=== PATIENT | female | born 1930 | race Caucasian/White ===

== ENCOUNTER 2019-04-15 09:54 | Inpatient (IN) | payer MEDICARE ==
[~2019-04-15] VITALS: Ht 172.7 cm; Wt 93.6 kg
[2019-04-15] MEDS ORDERED: IV NORMAL SALINE 1,000ML 1,000 ML IV SCH (10:20)
[2019-04-15] MEDS ORDERED: ASPIRIN 81 MG TAB.CHEW PO ONE (10:30)
--- NOTE | 2019-04-15 10:32 | PHYS DOC ---
Past History Past Medical History: CAD, Diabetes, High Cholesterol, Hypertension Past Surgical History: Other Additional Past Surgical Histo: cardiac stent Smoking: Non-smoker Alcohol Use: None Drug Use: None Adult General Chief Complaint Chief Complaint: RAPID HEART RATE HPI HPI Patient is a 88-year-old female presents with a fast heart rate and weakness that started this morning. Patient takes her blood pressure twice a day, noted that her heart rate was in the 100s this morning. It is normally in the 70s. She notes that she is feeling weaker than usual. Worse with exertion. No recent changes in medicine. She does not have any previous history of cardiac dysrhyt hmia. She denies any chest pain. Weakness is worse with exertion. No nausea or vomiting. No syncopal episode. No recent travel. No fever or chills. She has a history of diabetes, hypertension, high cholesterol, and previous cardiac stent. She had a syncopal event as the indication for her need for the cardiac status, she never had chest pain.[] Review of Systems Review of Systems Constitutional: Denies fever or chills [] Eyes: Denies change in visual acuity, redness, or eye pain [] HENT: Denies nasal congestion or sore throat [] Respiratory: Denies cough or shortness of breath [] Cardiovascular: No chest pain or palpitations[] GI: Denies abdominal pain, nausea, vomiting, bloody stools or diarrhea [] : Denies dysuria or hematuria [] Musculoskeletal: Denies back pain or joint pain [] Integument: Denies rash or skin lesions [] Neurologic: Denies headache, focal weakness or sensory changes [] Endocrine: Denies polyuria or polydipsia [] All other systems were reviewed and found to be within normal limits, except as documented in this note. Physical Exam Physical Exam Constitutional: Well developed, well nourished, no acute distress, non-toxic appearance. [] HENT: Normocephalic, atraumatic, bilateral external ears normal, oropharynx moist, no oral exudates, nose normal. [] Eyes: PERRLA, EOMI, conjunctiva normal, no discharge. [] Neck: Normal range of motion, no tenderness, supple, no stridor. [] Cardiovascular:Heart rate is tachycardic in the 100s to 120s, with an irregularly irregular rhythm, no murmur [] Lungs & Thorax: Bilateral breath sounds clear to auscultation [] Abdomen: Bowel sounds normal, soft, no tenderness, no masses, no pulsatile masses. [] Skin: Warm, dry, no erythema, no rash. [] Back: No tenderness, no CVA tenderness. [] Extremities: No tenderness, no cyanosis, no clubbing, ROM intact, 1-2+ pretibial edema bilaterally symmetric in lower extremities. [] Neurologic: Alert and oriented X 3, normal motor function, normal sensory function, no focal deficits noted. [] Psychologic: Affect normal, judgement normal, mood normal. [] EKG EKG EKG shows an irregularly irregular rhythm at 104 bpm, left axis, no ST elevation. QTC of 493 ms. No old EKG available for comparison. This was interpreted by me at 1010[] Radiology/Procedures Radiology/Procedures PROCEDURE: PORTABLE CHEST 1V AP chest x-ray HISTORY: New onset atrial fibrillation and weakness. FINDINGS: Aortic arch calcified plaque. Moderate cardiomegaly. No pneumothorax. Right lung clear. There is a small left pleural effusion along the lateral diaphragm and slight elevation of the left diaphragm. Heterogeneous linear densities at the left midlung general area of the upper lingula. Bones are unremarkable. IMPRESSION: Small left pleural effusion and mild elevation of the left diaphragm. Lingula atelectasis/infiltrate is present. Cardiomegaly.[] Course & Med Decision Making Course & Med Decision Making Pertinent Labs and Imaging studies reviewed. (See chart for details) ED course: Patient arrived, was placed in bed, and tolerated exam well. IV access was established, she was placed on the monitor. Her initial set of labs had issues with hemolysis and clotting. At the time of this dictation a second set is pending. However, enough had returned to be able to discuss findings and plan with patient and family. They voiced understanding. Consultation was made with the hospitalist service for admission. They graciously accepted. Patient was admitted in improved condition. Decision-making: Patient with new onset atrial fibrillation that is rate controlled, most likely is result of her carvedilol. Her initial cardiac enzymes are detectable but negative. Patient is having no chest pain, however she had no chest discomfort with her need for cardiac stenting. Holding off on anticoagulating as well as diuresing pending additional lab studies that have not returned at the time of this dictation.[] Dragon Disclaimer Dragon Disclaimer This electronic medical record was generated, in whole or in part, using a voice recognition dictation system. Departure Departure: Impression: Primary Impression: New onset atrial fibrillation Additional Impressions: Weakness Congestive heart failure Disposition: ADMITTED INPATIENT Admitting Physician: Blade Galarza Condition: IMPROVED Referrals: HEVER BOWER MD (PCP) Problem Qualifiers Additional Impressions: Congestive heart failure Heart failure type: unspecified Heart failure chronicity: unspecified Qualified Codes: I50.9 - Heart failure, unspecified JOSS FLORES DO Apr 15, 2019 10:32
--- NOTE | 2019-04-15 10:57 | RAD ---
AP chest x-ray HISTORY: New onset atrial fibrillation and weakness. FINDINGS: Aortic arch calcified plaque. Moderate cardiomegaly. No pneumothorax. Right lung clear. There is a small left pleural effusion along the lateral diaphragm and slight elevation of the left diaphragm. Heterogeneous linear densities at the left midlung general area of the upper lingula. Bones are unremarkable. IMPRESSION: Small left pleural effusion and mild elevation of the left diaphragm. Lingula atelectasis/infiltrate is present. Cardiomegaly. Electronically signed by: Michael Bartlett MD (04/15/2019 10:54 AM) [facility]
[2019-04-15 10:58] LABS: BASO % 1 % (0-3); EOS % 1 % (0-3); HEMATOCRIT 39.8 % (36.0-47.0); HEMOGLOBIN 12.5 g/dL (12.0-15.5); LYMPH # 1.7 x10^3/uL (1.0-4.8); LYMPH % 45 % (24-48); MEAN CORPUSCULAR HEMOGLOBIN 27 pg (25-35); MEAN CORPUSCULAR HGB CONC 31 g/dL (31-37); MEAN CORPUSCULAR VOLUME 87 fL (79-100); MONO # 0.3 x10^3/uL (0.0-1.1); MONO % 9 % (0-9); NEUT # 1.6 x10^3uL (1.8-7.7); NEUT % 44 % (31-73); PLATELET COUNT 191 x10^3/uL (140-400); RED BLOOD COUNT 4.55 x10^6/uL (3.50-5.40); RED CELL DISTRIBUTION WIDTH 16.3 % (11.5-14.5); WHITE BLOOD COUNT 3.8 x10^3/uL (4.0-11.0)
[2019-04-15 11:31] LABS: ALBUMIN 3.4 g/dL (3.4-5.0); ALBUMIN/GLOBULIN RATIO 1.1 (1.0-1.7); CALCIUM 8.4 mg/dL (8.5-10.1); CREATININE 1.1 mg/dL (0.6-1.0); GFR 46.9; MAGNESIUM 2.2 mg/dL (1.8-2.4); TOTAL BILIRUBIN 0.9 mg/dL (0.2-1.0); TOTAL PROTEIN 6.5 g/dL (6.4-8.2)
[2019-04-15] MEDS ORDERED: NITROGLYCERIN SUBLINGUAL 0.4 MG BOTTLE OF 25. SL PRN (11:45)
[2019-04-15] MEDS ORDERED: ONDANSETRON PF 4 MG/2 ML VIAL. IV PRN (11:45)
[2019-04-15] MEDS ORDERED: ACETAMINOPHEN 325 MG TABLET PO PRN (11:45)
[2019-04-15 13:23] VITALS: BP 150/95
[2019-04-15 13:31] VITALS: BP 150/95
[2019-04-15] MEDS ORDERED: ASPI-630 PO (14:28)
[2019-04-15] MEDS ORDERED: INSU100V13 SQ (14:28)
[2019-04-15] MEDS ORDERED: HYDR-2869 PO (14:28)
[2019-04-15] MEDS ORDERED: CARV25TA2 PO (14:28)
[2019-04-15] MEDS ORDERED: FURO-68 PO (14:28)
[2019-04-15] MEDS ORDERED: PRAV40TA2 PO (14:28)
[2019-04-15 16:13] VITALS: BP 159/91
--- NOTE | 2019-04-15 16:41 | HP ---
ADMIT DATE: 04/15/2019 HISTORY OF PRESENT ILLNESS: The patient is an 88-year-old female patient who came to the Emergency Room with a complaint of fast heart rate and weakness that started this morning. The patient takes her pressure twice a day and noted her heart rate was in the 100s, this morning, it is normal in the 70s. She notes that she is feeling weaker than usual, worse with exertion. No recent change in her medication. She does not have any previous history of cardiac dysrhythmia; although, subsequently said that she was told that her heart rate is regular and she was on Coumadin; however, she has a history of DVT also. Specifically, she denied any chest pain, denied any shortness of breath, orthopnea, paroxysmal nocturnal dyspnea, however, she was unable to be specific other than being weak. PAST MEDICAL HISTORY: Significant for hypertension, hyperlipidemia, type 2 diabetes mellitus, coronary artery disease status post [place], status post PCI with stent deployment x 3. She has a remote history of deep vein thrombosis. She is known to have senile macular degeneration. PAST SURGICAL HISTORY: Significant for appendectomy, cholecystectomy, PCI with stent deployment x 3 and history of colonoscopy. ALLERGIES: SHE IS ALLERGIC TO SULFA, IODINE, AND LATEX. MEDICATIONS: She is currently on pravastatin sodium 40 mg at bedtime, hydralazine 50 mg 3 times a day, carvedilol 25 mg twice a day with meals, aspirin 81 mg once a day, furosemide 40 mg once a day and detemir insulin 60 units at bedtime. FAMILY HISTORY: She has 1 living brother who is older and has cancer in remission. She has 4 sisters and 3 brothers, all . Her father of myocardial infarction. Mother of a tumor that she could not specify more. Her younger sister of pancreatic cancer. SOCIAL HISTORY: She is , has moved about 3 years ago with her to be with her daughter. She apparently has one daughter and three sons. Her older son at age of 46. She has never smoked, does not drink alcohol or use any recreational drugs. 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 REVIEW OF SYSTEMS: The patient denied any blurring of vision, cataract, glaucoma. However, she is known to have senile macular degeneration. Denied any earache, tinnitus or sensorineural deafness. Denied any nosebleeds, stuffy nose or postnasal drip. Denied any sore throat, sore tongue, toothache, hoarseness of voice or difficulty swallowing. Denied any nausea, vomiting, diarrhea or constipation. Denied any hematemesis, melena or hematochezia. Denied any dysuria, frequency or hematuria. Denied any chest pain, shortness of breath, orthopnea, paroxysmal nocturnal dyspnea. Denied any cough, phlegm or hemoptysis. Denied any chills, rigors or fever. She only has complaint of weakness, worse on exertion. PHYSICAL EXAMINATION: GENERAL: On arrival to the Emergency Room, she was somewhat pale, but no jaundice, cyanosis or lymphadenopathy. No thyromegaly. No jugular venous distention. Mild bilateral lower limb edema. VITAL SIGNS: Her heart rate was 109, blood pressure was 165/101, temperature was 97.8, respiratory rate was 22 and oxygen saturation was 98%. HEAD, EYES, EARS, NOSE AND THROAT: Showed normocephalic, atraumatic. NECK: Supple. HEART: Showed normal first and second heart sounds. No gallop or murmur. CHEST: Clear to auscultation. No crepitation or rhonchi. ABDOMEN: Distended, soft, nontender. No guarding or rigidity. No organomegaly. All hernial orifice intact. Bowel sounds normal. NEUROLOGIC: She was visually impaired. However, all other cranial nerves are intact. EXTREMITIES: She moves extremities without difficulty. She apparently ambulates without assistance or assistive devices. LABORATORY DATA: On arrival to the Emergency Room, she had lab work done, which showed a white cell count of 3800, hemoglobin 12.5, hematocrit 39.8, MCV 87 and platelet count 191,000. Her chemistry showed a serum sodium 143, potassium 4, chloride 106, bicarbonate 30, anion gap of 7, BUN 22, creatinine 1.1, estimated GFR was 46 mL per minute, her glucose 176, calcium was 8.4, magnesium 2.2. Total bilirubin, AST, ALT, alkaline phosphatase were normal. Total protein was 6.5, albumin was 3.4. Her beta natriuretic peptide was 1530. First cardiac enzymes showed troponin to be 0.032. Her prothrombin time, INR and APTT were normal. Her EKG showed that she was in atrial fibrillation with a heart rate of 104 beats per minute with corrected Q interval of 493 milliseconds and no evidence of ST segment elevation. Her chest x-ray showed that she has small left side pleural effusion, mild elevation of the left hemidiaphragm lingula, has atelectasis/infiltrate, and also heart size enlarged. ASSESSMENT AND PLAN: In summary, this is an 88-year-old female patient who was admitted with generalized weakness, was found to have new onset atrial fibrillation and cardiomegaly and questionable congestive heart failure. Her troponin was slightly elevated at 0.032. We will do 2 more sets of cardiac enzyme. We will check her fasting lipid profile tomorrow morning and also thyroid function test and we have consulted the Cardiology to evaluate her. Meanwhile, we will continue with all her current medications. ZARI TAMAYO MD DR: SPEEDY/vadim JOB#: [id number] / [id number]
[2019-04-15] MEDS: CARVEDILOL 12.5 MG TABLET PO SCH (17:25)
[2019-04-15] MEDS: INSULIN GLARGINE SYRINGE. SQ SCH (20:21)
[2019-04-15] MEDS: ATORVASTATIN CALCIUM 10 MG TABLET. PO SCH (20:21)
[2019-04-15 20:33] VITALS: BP 129/82
[2019-04-15] MEDS ORDERED: INSULIN DETEMIR 16 UNIT SQ SCH (21:00)
[2019-04-15 23:12] VITALS: BP 108/73
[2019-04-16 06:04] VITALS: BP 131/62
[2019-04-16 07:33] LABS: BASO % 1 % (0-3); EOS # 0.1 x10^3/uL (0.0-0.7); EOS % 2 % (0-3); HEMATOCRIT 39.8 % (36.0-47.0); HEMOGLOBIN 12.5 g/dL (12.0-15.5); LYMPH # 1.9 x10^3/uL (1.0-4.8); LYMPH % 52 % (24-48); MEAN CORPUSCULAR HEMOGLOBIN 27 pg (25-35); MEAN CORPUSCULAR HGB CONC 31 g/dL (31-37); MEAN CORPUSCULAR VOLUME 88 fL (79-100); MONO # 0.3 x10^3/uL (0.0-1.1); MONO % 9 % (0-9); NEUT # 1.3 x10^3uL (1.8-7.7); NEUT % 36 % (31-73); PLATELET COUNT 181 x10^3/uL (140-400); RED BLOOD COUNT 4.55 x10^6/uL (3.50-5.40); RED CELL DISTRIBUTION WIDTH 16.2 % (11.5-14.5); WHITE BLOOD COUNT 3.7 x10^3/uL (4.0-11.0)
[2019-04-16 07:45] LABS: ALBUMIN/GLOBULIN RATIO 0.8 (1.0-1.7); CALCIUM 8.5 mg/dL (8.5-10.1); CREATININE 0.9 mg/dL (0.6-1.0); POTASSIUM 4.3 mmol/L (3.5-5.1); TOTAL BILIRUBIN 0.9 mg/dL (0.2-1.0); TOTAL PROTEIN 6.6 g/dL (6.4-8.2)
[2019-04-16] MEDS ORDERED: FLU VAX QS 2019-20 (36MOS+)/PF 0.5 ML SYRINGE. VAX IM ONE (09:00)
[2019-04-16] MEDS: CARVEDILOL 12.5 MG TABLET PO SCH ×2 (09:37→17:49)
[2019-04-16] MEDS: FUROSEMIDE 40 MG TABLET PO SCH (09:37)
[2019-04-16] MEDS: ASPIRIN 81 MG TAB.CHEW PO SCH (09:38)
[2019-04-16 11:13] VITALS: BP 120/73
--- NOTE | 2019-04-16 15:06 | CONS ---
DATE OF CONSULTATION: 04/16/2019 REASON FOR CONSULTATION: New onset atrial fibrillation. HISTORY OF PRESENT ILLNESS: The patient is a very pleasant 89-year-old woman with a past medical history of coronary artery disease, who presents to the hospital due to an irregular pulse. She was advised by her online banking specialist, Dr. Sesay at [facility] to check her blood pressure routinely and while she was doing that on Wednesday night and Wednesday morning prior to admission, she noticed that her pulse was higher than usual. This prompted arrival to the ER, where she was noted to be in atrial fibrillation with mostly controlled ventricular response and she was admitted for further evaluation and treatment. In speaking with the patient, she currently denies any chest pain, dyspnea, orthopnea or PND. She does endorse weakness over the course of last one month or so. She has not had any syncope. PAST MEDICAL HISTORY: 1. Remote coronary artery disease, status post PCI and the patient thinks she may have had 3 stents. 2. Hypertension. 3. Diabetes. 4. Dyslipidemia. 5. Prior history of remote DVT and on Coumadin therapy. SOCIAL HISTORY: The patient specifically denies any prior history of stroke. ALLERGIES: SULFA, IODINE, AND LATEX. CURRENT CARDIOVASCULAR MEDICATIONS: 1. Lasix 40 mg daily. 2. Aspirin 81 mg daily. 3. Atorvastatin 10 mg daily. 4. Carvedilol 25 mg p.o. b.i.d. 5. Hydralazine 50 mg p.o. t.i.d. REVIEW OF SYSTEMS: Negative unless otherwise mentioned above in HPI. PHYSICAL EXAMINATION: VITAL SIGNS: Afebrile, 102, 20, 120/73, 96% on room air. GENERAL: She is alert and oriented. She has very poor vision. HEAD AND NECK: Unremarkable. CARDIAC: Irregularly irregular without any obvious murmurs, rubs or gallops. LUNGS: Clear to auscultation anteriorly. ABDOMEN: Soft, nontender, nondistended. EXTREMITIES: 1+ radial and dorsalis pedis pulses. NEUROLOGIC: No focal deficits. MUSCULOSKELETAL: No obvious trauma. SKIN: No significant rashes. DIAGNOSTIC STUDIES: Hemoglobin and platelets are within normal limits. Creatinine is within normal limits. Cardiac enzymes are also negative x 3. LDL is within normal limits. Chest x-ray reveals a small left pleural effusion without any significant pathology. Telemetry reveals atrial fibrillation with a controlled ventricular response. EKG is not currently available for review. IMPRESSION: New onset atrial fibrillation in a setting of multiple cardiovascular risk factors and comorbidities as noted above. RECOMMENDATIONS: 1. We will most likely initiate the patient on anticoagulation therapy and continue her rate control with carvedilol. 2. Obtain records from [facility] and we will also plan for an echocardiogram if necessary based on the most recent echo she has had. We will discuss with the patient's family regarding continued conservative management with rate control and anticoagulation versus aggressive therapy with cardioversion. Thank you for this consultation. HAKEEM ALEXIS MD DR: ZEUS/vadim JOB#: [id number] / [id number]
[2019-04-16 15:10] VITALS: BP 123/81
[2019-04-16 19:30] VITALS: BP 126/83
[2019-04-16] MEDS: ATORVASTATIN CALCIUM 10 MG TABLET. PO SCH (20:51)
[2019-04-16] MEDS: APIXABAN 5 MG TABLET. PO SCH (20:51)
[2019-04-16] MEDS: INSULIN GLARGINE SYRINGE. SQ SCH (21:11)
--- NOTE | 2019-04-17 03:29 | PN ---
DATE: SUBJECTIVE: The patient is resting, slightly propped up in bed, no apparent distress. On questioning her, denied any complaint, in particular denied any chest pain, shortness of breath, dizziness, lightheadedness; however, she continued to be in atrial fibrillation with rapid ventricular response and was seen by the sec accountant and who recommended starting her on Eliquis. Her medical records will be obtained from [facility] and a discussion will be held tomorrow with her family regarding whether medical treatment or aggressive treatment with cardioversion will be pursued. PHYSICAL EXAMINATION: GENERAL: When I saw her this afternoon, she looked well and was clearly in no apparent respiratory distress, pale, but no jaundice, cyanosis or thyromegaly. No jugular venous distension. No limb edema. VITAL SIGNS: Her heart rate was 102, blood pressure was 120/73, temperature was 98.1, respiratory rate 20, and oxygen saturation was 96%. HEAD, EYES, EARS, NOSE AND THROAT: Showed normocephalic, atraumatic. NECK: Supple. HEART: Showed normal first and second heart sounds. No gallop or murmur. CHEST: Clear to auscultation. No crepitation or rhonchi. ABDOMEN: Distended, soft, nontender. NEUROLOGIC: She was awake, alert, responding appropriately. All cranial nerves intact. She moves extremities without difficulty. Her intake over the last 24 hours was 670, no output was recorded. LABORATORY DATA: Her lab work this morning showed a serum sodium 143, potassium 4.3, chloride 108, bicarbonate 26, anion gap of 9, BUN 18, creatinine 0.9, estimated GFR was 59 mL per minute. Her glucose 118, calcium was 8.5. Total bilirubin, AST, ALT, alkaline phosphatase were normal. Total protein was 6.6, albumin was 3. Serum triglycerides were 88, total cholesterol 125, LDL was 66, VLDL was 17, HDL was 42 and the ratio was 2. Her TSH was normal at 2.195. ASSESSMENT: This is an _[id number] female patient who was admitted with new-onset of atrial fibrillation. OTHER MEDICAL PROBLEMS: Include: A. Hypertension. B. Hyperlipidemia. C. Type 2 diabetes. D. Coronary artery disease, status post [place], status post PCI with stent deployment x 3. She has remote history of deep vein thrombosis. She has also a senile macular degeneration. I did start her on Eliquis and we will continue obviously with rate control with Coreg and tomorrow the Cardiology team will discuss with the family regarding the options available to control the heart rate with medically and/or with cardioversion. ZARI TAMAYO MD DR: SPEEDY/vadim JOB#: [id number] / [id number]
[2019-04-17 05:39] VITALS: BP 121/77
[2019-04-17] MEDS: ASPIRIN 81 MG TAB.CHEW PO SCH (08:14)
[2019-04-17] MEDS: CARVEDILOL 12.5 MG TABLET PO SCH (08:14)
[2019-04-17] MEDS: APIXABAN 5 MG TABLET. PO SCH (08:14)
[2019-04-17] MEDS: FUROSEMIDE 40 MG TABLET PO SCH (08:14)
[2019-04-17 09:35] VITALS: BP 95/61
[2019-04-17] MEDS ORDERED: APIX5TAB5 PO (11:32)
--- NOTE | 2019-04-17 12:35 | PDOC ---
PROVIDER NOTE PROVIDER NOTE PROVIDER NOTE S: No acute events overnight. Remains in afib. Rate controlled. O: Irr irr No edema. Clr lungs Soft abd Labs reviewed. Tele reviewed. Impression: 1. New onset atrial fibrillation Plan: 1. Discussed with daughter at bedside extensively. They plan for conservative mgmt. Continue eliquis, coreg and add amiodarone 200mg bid x 7 days and then amiodarone 200mg daily. Discussed with nursing staff and Dr. Galarza, ok to DC. patient with f/u with Dr. Sesay at and plan for outpt cardioversion if needed in 4 weeks. Thanks HAKEEM ALEXIS MD Apr 17, 2019 12:35
--- NOTE | 2019-04-17 12:42 | NUR ---
NSG NOTE; DISCHARGE VERBAL AND WRITTEN DISCHARGE INSTRUCTIONS GIVEN TO PT AND DAUGHTER WITH VERBAL UNDERSTANDING WRITTEN RX GIVEN TO PT'S DAUGHTER DISCHARGE TO HOME AT 1241 VIA W/C ACCOMP BY DAUGHTER
--- NOTE | 2019-04-17 19:52 | DS ---
DATE OF DISCHARGE: 04/17/2019 HOSPITAL COURSE: The patient is an 89-year-old female patient who was admitted with new onset of atrial fibrillation with rapid ventricular response. She has 3 sets of cardiac enzymes that ruled out myocardial infarction and was seen in consultation by the Cardiology team. She was started on Eliquis as well as amiodarone for better control with heart rate and plan is for her to be discharged to follow with her primary beam machine operator at [facility]. PHYSICAL EXAMINATION: GENERAL: When I saw her this afternoon, she was resting slightly propped up in bed, in no apparent respiratory distress. She was pale. No jaundice, cyanosis or thyromegaly. No jugular venous distention. No lower limb edema. VITAL SIGNS: Her heart rate was 104, blood pressure was 95/61, temperature was 98, respiratory rate 20 and oxygen saturation was 95%. HEAD, EYES, EARS, NOSE AND THROAT: Showed normocephalic, atraumatic. NECK: Supple. HEART: Showed normal first and second heart sounds with no gallop, rub or murmur. CHEST: Clear to auscultation. No crepitation or rhonchi. ABDOMEN: Distended, soft, nontender. No guarding or rigidity. No organomegaly. All hernial orifice intact. Bowel sounds normal. NEUROLOGIC: She is awake and alert. She has severe senile macular degeneration. 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 Otherwise, all other cranial nerves are intact. She moves extremities without difficulty. She ambulates with a walker. LABORATORY WORK: This morning showed a white cell count of 3700, hemoglobin 12, hematocrit 39, MCV 88 and platelet count of 181,000. Her serum sodium was 143, potassium 4.3, chloride 108, bicarbonate 26, anion gap of 9, BUN 18, creatinine 0.9, estimated GFR was 69 mL per minute. Her TSH is normal at 2.195. Her serum triglycerides were 88, total cholesterol 125, LDL was 66, VLDL was 17 and HDL cholesterol was 42 and the ratio was 2. DISCHARGE MEDICATIONS: She was discharged home to continue on amiodarone 200 mg twice a day for 7 days and then amiodarone 200 mg daily, apixaban 5 mg twice a day. She is to continue also on aspirin 81 mg once a day, carvedilol 25 mg twice a day with meals, furosemide 40 mg once a day, hydralazine 50 mg 3 times a day and Levemir insulin 60 units at bedtime and pravastatin sodium 40 mg at bedtime. FINAL DISCHARGE DIAGNOSES: 1. New-onset atrial fibrillation, rate controlled, well anticoagulated. 2. Hypertension, well controlled. 3. Hyperlipidemia, on statin. 4. Type 2 diabetes mellitus. 5. Coronary artery disease, status post myocardial infarction, status post percutaneous coronary intervention with stent deployment x 3. 6. Remote history of deep vein thrombosis. 7. Senile macular degeneration. ZARI TAMAYO MD DR: SPEEDY/vadim JOB#: [id number] / [id number]
--- NOTE | 2019-04-18 03:55 | EKG ---
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
== END 2019-04-17 12:41 | disposition home or self-care (01) | DRG 309 ==
LOC: ER 09:54 → 1 SOUTH 12:57
PROVIDERS: ADMIT Internal Medicine; ATTEND Internal Medicine
DX: I48.91 Unspecified atrial fibrillation (principal); J98.11 Atelectasis; I50.32 Chronic diastolic (congestive) heart failure; E11.9 Type 2 diabetes mellitus without complications; E78.00 Pure hypercholesterolemia, unspecified; E78.5 Hyperlipidemia, unspecified; H35.30 Unspecified macular degeneration; I11.0 Hypertensive heart disease with heart failure; I25.10 Atherosclerotic heart disease of native coronary artery without angina pectoris; I25.2 Old myocardial infarction; Z79.01 Long term (current) use of anticoagulants; Z80.0 Family history of malignant neoplasm of digestive organs; Z82.49 Family history of ischemic heart disease and other diseases of the circulatory system; Z86.718 Personal history of other venous thrombosis and embolism; Z95.5 Presence of coronary angioplasty implant and graft; Z90.49 Acquired absence of other specified parts of digestive tract; Z88.2 Allergy status to sulfonamides; Z91.040 Latex allergy status
CPT/HCPCS: 36415; 71045; 80053; 80061; 82947; 83735; 83880; 84443; 84484; 85025; 85610; 85730; 87040; 90471; 90686; 93005; 96360; 96361; J1815; 99285-25; J7030

== ENCOUNTER 2019-04-22 18:45 | Emergency (ER) | payer MEDICARE ==
[~2019-04-22] VITALS: Ht 172.7 cm; Wt 94.8 kg
[~2019-04-22 18:45] MED LIST: APIX5TAB5 PO; ASPI-630 PO; CARV25TA2 PO; FURO-68 PO; HYDR-2869 PO; INSU100V13 SQ; PRAV40TA2 PO
[2019-04-22] MEDS ORDERED: FAMOTIDINE 20 MG/2 ML VIAL IVP ONE (19:45)
[2019-04-22] MEDS ORDERED: DEXAMETHASONE SOD PHOS 10 MG/ML VIAL IV ONE (19:45)
[2019-04-22] MEDS ORDERED: diphenhydrAMINE 50 MG/ML VIAL IVP ONE (19:45)
--- NOTE | 2019-04-22 19:46 | EKG ---
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
--- NOTE | 2019-04-22 19:50 | PHYS DOC ---
Past History Past Medical History: A-Fib, CAD, Diabetes, High Cholesterol, Hypertension Past Surgical History: Other Additional Past Surgical Histo: cardiac stent Smoking: Non-smoker Alcohol Use: None Drug Use: None Adult General Chief Complaint Chief Complaint: SHORTNESS OF BREATH HPI HPI 89-year-old female presents with daughter with report of shortness of breath that started at 1700 today. Patient reports sensation that her "throat is closing up ". Patient reports she has been on some new medications for the past 6 days which she thinks might be secondary to this sensation. Reports she was started on Eliquis and amiodarone. Denies any rash. Denies itching. Denies tongue swelling. Review of Systems Review of Systems Constitutional: Denies fever or chills Eyes: Denies redness or eye pain HENT: Denies nasal congestion or sore throat; reports sensation of throat closing Respiratory: Reports shortness of breath Cardiovascular: Denies chest pain or palpitations GI: Denies abdominal pain, nausea, or vomiting : Denies dysuria or hematuria Musculoskeletal: Denies back pain or joint pain Integument: Denies rash or skin lesions Neurologic: Denies headache, focal weakness or sensory changes Complete systems were reviewed and found to be within normal limits, except as documented in this note. Current Medications Current Medications Current Medications Medications (Trade) Dose Ordered Sig/Mónica Start Time Stop Time Status Last Admin Dose Admin Dexamethasone Sodium Phosphate (Decadron) 10 mg 1X ONCE 04/22/19 19:45 04/22/19 19:46 DC Diphenhydramine HCl (Benadryl) 12.5 mg 1X ONCE 04/22/19 19:45 04/22/19 19:46 DC Famotidine (Pepcid Vial) 20 mg 1X ONCE 04/22/19 19:45 04/22/19 19:46 DC Allergies Allergies Allergies Coded Allergies Type Severity Reaction Last Updated Verified Sulfa (Sulfonamide Antibiotics) Allergy Unknown 04/15/19 Yes iodine Allergy Unknown 04/15/19 Yes latex Allergy Unknown 04/15/19 Yes Physical Exam Physical Exam Constitutional: Well developed, well nourished, anxious, non-toxic appearance HENT: Normocephalic, atraumatic, oropharynx moist, tongue normal, no stridor Eyes: Conjunctiva normal, no discharge Neck: Normal range of motion, no tenderness, supple Cardiovascular: Heart rate normal, regular rhythm Lungs & Thorax: Bilateral breath sounds clear to auscultation, no wheezing Abdomen: Soft, no tenderness Skin: Warm, dry, no erythema, no rash Extremities: No tenderness, ROM intact, no edema Neurologic: Alert and oriented X 3, no focal deficits noted Psychologic: Affect anxious, judgement normal Current Patient Data Vital Signs Vital Signs Date Time Temp Pulse Resp B/P (MAP) Pulse Ox O2 Delivery O2 Flow Rate FiO2 04/22/19 19:01 98.0 83 20 98 Room Air EKG EKG @1900 NSR at 75bpm, NO ST elevation, LAFB, t wave inversion, V1-V4, QRS 104ms, QT/QTc 438/492ms Radiology/Procedures Radiology/Procedures PROCEDURE: PORTABLE CHEST 1V EXAM: AP View of the chest DATE: 04/22/2019 7:17 PM INDICATION: dyspnea COMPARISON: 04/15/2019 FINDINGS/ IMPRESSION: The heart is borderline enlarged. Mediastinal and hilar contours are stable. Bilateral perihilar and lung base airspace opacities may represent developing consolidation such as multifocal pneumonia. Compared to 04/15/2019, these findings are progressed. Trace left pleural effusion. No pneumothorax. Electronically signed by: Everton Wasihngton MD (04/22/2019 9:44 PM) [facility] Course & Med Decision Making Course & Med Decision Making Pertinent Labs and Imaging studies reviewed. (See chart for details) Patient presents with report of sensation of throat closing up and shortness of air which started today at 1700. Sats stable. No respiratory distress noted. No tongue swelling or stridor appreciated. EKG obtained without acute process. Labs obtained and posted to chart. Leukopenia similar to prior. BNP stable. Chest x- ray with some lung markings possibly progressed from prior. Patient given symptomatic steroid, Benadryl, and Pepcid with interval improvement of symptoms. Presume symptoms may be secondary to unknown allergen. Doubt Eliquis or amiodarone as they were started 6 days ago without any issue. Patient stable for discharge with outpatient follow-up with PCP/cardiology. Discussed findings and plan with patient and family, who acknowledge understanding and agreement. Dragon Disclaimer Dragon Disclaimer This electronic medical record was generated, in whole or in part, using a voice recognition dictation system. Departure Departure: Impression: Primary Impression: Allergic reaction Disposition: HOME, SELF-CARE Condition: STABLE Referrals: HEVER BOWER MD (PCP) Patient Instructions: Shortness of Breath, [id number] Additional Instructions: Your sensation of throat closing might be secondary to an allergic reaction. It is unclear what might be causing your symptoms. Scripts Famotidine (PEPCID) 20 Mg Tablet 1 TAB PO BID for allergy, #14 TAB Prov: BELLA CASTILLO DO 04/22/19 Diphenhydramine Hcl (BENADRYL) 25 Mg Capsule 0.5 CAP PO Q6HRS PRN for ALLERGIES, #20 CAP 0 Refills Prov: BELLA CASTILLO DO 04/22/19 Problem Qualifiers Primary Impression: Allergic reaction Encounter type: initial encounter Qualified Codes: T78.40XA - Allergy, unspecified, initial encounter BELLA CASTILLO DO Apr 22, 2019 19:50
[2019-04-22 20:07] LABS: BASO % 1 % (0-3); EOS # 0.1 x10^3/uL (0.0-0.7); EOS % 2 % (0-3); HEMATOCRIT 34.8 % (36.0-47.0); HEMOGLOBIN 11.1 g/dL (12.0-15.5); LYMPH # 1.9 x10^3/uL (1.0-4.8); LYMPH % 54 % (24-48); MEAN CORPUSCULAR HEMOGLOBIN 28 pg (25-35); MEAN CORPUSCULAR HGB CONC 32 g/dL (31-37); MEAN CORPUSCULAR VOLUME 87 fL (79-100); MONO # 0.4 x10^3/uL (0.0-1.1); MONO % 11 % (0-9); NEUT # 1.2 x10^3uL (1.8-7.7); NEUT % 33 % (31-73); PLATELET COUNT 153 x10^3/uL (140-400); RED BLOOD COUNT 3.99 x10^6/uL (3.50-5.40); RED CELL DISTRIBUTION WIDTH 16.2 % (11.5-14.5); WHITE BLOOD COUNT 3.6 x10^3/uL (4.0-11.0)
[2019-04-22 20:26] VITALS: BP 144/78
[2019-04-22 20:29] LABS: ALBUMIN 3.2 g/dL (3.4-5.0); ALBUMIN/GLOBULIN RATIO 1.1 (1.0-1.7); CALCIUM 7.9 mg/dL (8.5-10.1); CREATININE 1.2 mg/dL (0.6-1.0); GFR 42.3; MAGNESIUM 2.1 mg/dL (1.8-2.4); POTASSIUM 3.8 mmol/L (3.5-5.1); TOTAL BILIRUBIN 0.6 mg/dL (0.2-1.0)
[2019-04-22] MEDS ORDERED: DIPH25CA58 PO (20:56)
[2019-04-22] MEDS ORDERED: FAMO-63 PO (20:56)
--- NOTE | 2019-04-22 21:47 | RAD ---
EXAM: AP View of the chest DATE: 04/22/2019 7:17 PM INDICATION: dyspnea COMPARISON: 04/15/2019 FINDINGS/ IMPRESSION: The heart is borderline enlarged. Mediastinal and hilar contours are stable. Bilateral perihilar and lung base airspace opacities may represent developing consolidation such as multifocal pneumonia. Compared to 04/15/2019, these findings are progressed. Trace left pleural effusion. No pneumothorax. Electronically signed by: Everton Washington MD (04/22/2019 9:44 PM) [facility]
[2019-04-25 12:07] LABS: AMIODARONE 0.5 ug/mL (1.0-2.5); DESETHYLAMIODARONE None Detected ug/mL (1.0-2.5)
== END 2019-04-22 21:12 | disposition home or self-care (01) ==
LOC: ER 18:45
DX: T78.40XA Allergy, unspecified, initial encounter (principal); I48.91 Unspecified atrial fibrillation; I25.10 Atherosclerotic heart disease of native coronary artery without angina pectoris; E78.00 Pure hypercholesterolemia, unspecified; I10 Essential (primary) hypertension; Z95.818 Presence of other cardiac implants and grafts; Z88.2 Allergy status to sulfonamides; Z88.8 Allergy status to other drugs, medicaments and biological substances; Z91.040 Latex allergy status; X58.XXXA Exposure to other specified factors, initial encounter
CPT/HCPCS: 36415; 71045; 80053; 80299; 82553; 83690; 83735; 83880; 84484; 85025; 93005; 96374; 96375; 99285; J1100; J1200; J3490

== ENCOUNTER 2019-05-09 02:12 | Emergency (ER) | payer MEDICARE ==
[~2019-05-09] VITALS: Ht 172.7 cm; Wt 92.6 kg
[~2019-05-09 02:12] MED LIST changes: +DIPH25CA58 PO; +FAMO-63 PO
--- NOTE | 2019-05-09 02:25 | EKG ---
[address] [address] Test Date: 2019-05-09 Test Time: 02:21:35 Pat Name: YARELI OLGUIN Department: Room: Gender: F Test Skein Winder: : 1930 Requested By: ADRIAN ORTIZ Order Number: [id number] Reading MD: Sae Underwood MD Measurements Intervals [place] Rate: 65 P: -12 NM: 188 QRS: -48 QRSD: 126 T: -17 QT: 474 QTc: 494 Interpretive Statements SINUS RHYTHM LAFB RBBB Electronically Signed On 05-09-2019 15:10:27 GARDENING MANAGER by Sae Underwood MD
[2019-05-09 02:30] VITALS: BP 157/70
--- NOTE | 2019-05-09 02:36 | PHYS DOC ---
Past History Past Medical History: A-Fib, CAD, Diabetes, High Cholesterol, Hypertension Past Surgical History: Other Additional Past Surgical Histo: cardiac stent Smoking: Non-smoker Alcohol Use: None Drug Use: None Adult General Chief Complaint Chief Complaint: SHORTNESS OF BREATH HPI HPI 89-year-old female presents with shortness of breath. The patient recently started normal that and atelectasis for her A. fib. She is concerned that she may be allergic to one of them. She's been taking both of them for about 3 weeks. Tonight the patient woke up from her sleep with a throat tightening sensation and diaphoresis. She took a Benadryl 30 minutes prior to arrival. She is feeling quite a bit better at this time. She denies rash or pruritus. She has been allergic to medicines in the past, with iodine or sulfa in them. The patient denies chest pain. She does not think she had a fever or chills. Review of Systems Review of Systems Constitutional: Denies fever or chills [] Eyes: Denies change in visual acuity, redness, or eye pain [] HENT: Denies nasal congestion or sore throat [] Respiratory: shortness of breath [] Cardiovascular: No additional information not addressed in HPI [] GI: Denies abdominal pain, nausea, vomiting, bloody stools or diarrhea [] : Denies dysuria or hematuria [] Musculoskeletal: Denies back pain or joint pain [] Integument: Denies rash or skin lesions [] Neurologic: Denies headache, focal weakness or sensory changes [] Endocrine: Denies polyuria or polydipsia [] All other systems were reviewed and found to be within normal limits, except as documented in this note. Allergies Allergies Allergies Coded Allergies Type Severity Reaction Last Updated Verified Sulfa (Sulfonamide Antibiotics) Allergy Unknown 04/15/19 Yes iodine Allergy Unknown 04/15/19 Yes latex Allergy Unknown 04/15/19 Yes Physical Exam Physical Exam Constitutional: Well developed, well nourished, no acute distress, non-toxic ap pearance. [] HENT: Normocephalic, atraumatic, bilateral external ears normal, oropharynx moist, no oral exudates, nose normal. [] Eyes: PERRLA, EOMI, conjunctiva normal, no discharge. [] Neck: Normal range of motion, no tenderness, supple, no stridor. [] Cardiovascular:Heart rate regular rhythm, no murmur [] Lungs & Thorax: Bilateral breath sounds clear to auscultation [] Abdomen: Bowel sounds normal, soft, no tenderness, no masses, no pulsatile masses. [] Skin: Warm, dry, no erythema, no rash. [] Back: No tenderness, no CVA tenderness. [] Extremities: No tenderness, no cyanosis, no clubbing, ROM intact, no edema. [] Neurologic: Alert and oriented X 3, normal motor function, normal sensory function, no focal deficits noted. [] Psychologic: Affect normal, judgement normal, mood normal. [] EKG EKG Sinus rhythm, rate 65, leftward axis, no ST elevations or depressions.[] Radiology/Procedures Radiology/Procedures [] Course & Med Decision Making Course & Med Decision Making Pertinent Labs and Imaging studies reviewed. (See chart for details) Patient's labs are significant for a slightly elevated creatinine and troponin. Review of her chart shows that both of these are similar to previous. The patient's chest x-ray is negative for acute findings. Her EKG is unremarkable. This does not appear to be an allergic reaction. I have not given the patient any steroids. Have any kind of rash or evidence of systemic involvement. The patient is feeling better at this time. I've advised that she inform her demo event specialist of this episode and will defer to their judgment about her medications. I do not see a reason to keep the patient hospital at this time. She is stable for discharge. Return if the symptoms come back. [] Dragon Disclaimer Dragon Disclaimer This electronic medical record was generated, in whole or in part, using a voice recognition dictation system. Departure Departure: Impression: Primary Impression: Shortness of breath Disposition: 01 HOME, SELF-CARE Condition: STABLE Referrals: HEVER BOWER MD (PCP) Patient Instructions: Shortness of Breath, [id number] ADRIAN ORTIZ DO May 09, 2019 02:36
[2019-05-09 02:52] LABS: BASO # 0.1 x10^3/uL (0.0-0.2); BASO % 1 % (0-3); EOS # 0.1 x10^3/uL (0.0-0.7); EOS % 2 % (0-3); HEMATOCRIT 35.5 % (36.0-47.0); HEMOGLOBIN 11.3 g/dL (12.0-15.5); LYMPH # 1.5 x10^3/uL (1.0-4.8); LYMPH % 28 % (24-48); MEAN CORPUSCULAR HEMOGLOBIN 28 pg (25-35); MEAN CORPUSCULAR HGB CONC 32 g/dL (31-37); MEAN CORPUSCULAR VOLUME 87 fL (79-100); MONO # 0.5 x10^3/uL (0.0-1.1); MONO % 9 % (0-9); NEUT # 3.2 x10^3uL (1.8-7.7); NEUT % 60 % (31-73); PLATELET COUNT 154 x10^3/uL (140-400); RED CELL DISTRIBUTION WIDTH 15.7 % (11.5-14.5); WHITE BLOOD COUNT 5.4 x10^3/uL (4.0-11.0)
[2019-05-09 03:13] LABS: ALBUMIN 3.3 g/dL (3.4-5.0); CALCIUM 8.1 mg/dL (8.5-10.1); CREATININE 1.2 mg/dL (0.6-1.0); GFR 42.3; POTASSIUM 3.1 mmol/L (3.5-5.1); TOTAL BILIRUBIN 0.8 mg/dL (0.2-1.0); TOTAL PROTEIN 6.5 g/dL (6.4-8.2)
--- NOTE | 2019-05-09 06:02 | RAD ---
INDICATION: Shortness of breath COMPARISON: April 22, 2019 FINDINGS: Single view chest. Repeat demonstration left midlung opacity. Cardiac silhouette is again enlarged Fullness of bilateral pulmonary hilum again seen IMPRESSION: * Repeat demonstration of focal opacity in the left midlung which could be secondary to a region of atelectasis or infiltrate. Follow-up could be obtained to ensure this resolves to exclude alternative neoplastic causes. A definite new region of consolidation is not seen. * Repeat demonstration of enlarged cardiac silhouette as well as fullness in the bilateral pulmonary hilum. Electronically signed by: Mango Best MD (05/09/2019 5:58 AM) [facility]
== END 2019-05-09 04:15 | disposition home or self-care (01) ==
LOC: ER 02:12
DX: R06.02 Shortness of breath (principal); R61 Generalized hyperhidrosis; J39.2 Other diseases of pharynx; I48.91 Unspecified atrial fibrillation; I25.10 Atherosclerotic heart disease of native coronary artery without angina pectoris; E11.9 Type 2 diabetes mellitus without complications; I10 Essential (primary) hypertension; E78.00 Pure hypercholesterolemia, unspecified; Z79.899 Other long term (current) drug therapy; Z88.2 Allergy status to sulfonamides; Z88.8 Allergy status to other drugs, medicaments and biological substances; Z91.040 Latex allergy status
CPT/HCPCS: 36415; 71045; 80053; 83880; 84484; 85025; 93005; 99285-25